=== PATIENT | male | born 1970 | race Caucasian/White ===

== ENCOUNTER → 2020-10-05 15:20 | Outpatient (BNVA) | payer BC, SELFPAY | PROVIDERS: Visit Provider Urology ==

== ENCOUNTER 2021-01-15 06:26 | Day surgery (SDC) | payer BC, SELFPAY ==
[2021-01-05 11:00] VITALS: BMI 27.1
--- NOTE | 2021-01-10 11:47 | HO.ANESPROP2 ---
HPI - Anesthesia Eval Consult details Narrative: 50yo M for Excision Lesion,CO2 laser of angiokeratoma of scrotum PMFSH Active Problems Active Problems: All Active Problems (Updated 01/05/21 @ 10:54 by Dora Jesus RN) Angiokeratoma of scrotum (Acute) Past Medical History Medical History (Updated 01/05/21 @ 10:54 by Dora Jesus RN) Asthma History of panic attacks Scrotal abscess Surgical History Surgical History (Updated 01/05/21 @ 10:54 by Dora Jesus RN) History of testicular surgery Hx of excision of mass Hx of wisdom tooth extraction Social History Social History Patient Tobacco Use Status: Never used Tobacco Meds Allergies Allergy/AdvReac Type Severity Reaction Status Date / Time bupivacaine [From MARCAINE] AdvReac Intermediate BP ISSUES, Verified 01/05/21 10:48 VOMITING lidocaine [From XYLOCAINE] AdvReac Intermediate BP ISSUES, Verified 01/05/21 10:48 VOMITING Home Medications Medication Instructions Recorded Confirmed Last Taken Type albuterol sulfate 90 mcg/actuation 1 puff PO Q4-6H PRN 10/05/20 01/05/21 Unknown History aerosol inhaler escitalopram oxalate 10 mg tablet 10 mg PO DAILY 10/05/20 01/05/21 01/15/21 History finasteride 5 mg tablet 1.25 mg PO DAILY 12/06/20 01/05/21 Unknown History Exam Exam Date and Time: January 10, 2021 1147 Height,Weight and Vital Signs: Height 5 ft 11 in Weight 88.451 kg Assessment and Plan Assessment Anesthesia Assessment: Chart Reviewed
[2021-01-15 06:52] VITALS: BP 136/89; PULSE 82; RESP 16; TEMP 36.7; O2SAT 97
[2021-01-15] MEDS: Lactated Ringers 1,000 ML 100 ML IVCONT (07:00)
[2021-01-15] MEDS: levoFLOXacin 500 MG TABLET PO (07:50)
--- NOTE | 2021-01-15 08:10 | MHC.SHP ---
Pre-Procedural Eval Section A Date of Service: 01/15/21 The patient is an INPATIENT: No Changes since office visit: No Cold of Flu in the past 2 weeks, No New Medical Problems, No Changes in Medication and No Patient answered all questions The History & Physical has been completed within 30 days and I have reviewed it.: No Section B Chief Complaint: neoplasm of scrotum Details of Present Illness: CO2 scrotal angiokeratoma Relevant Family History (Specify if Yes): No Relevant Social History: None Present Medications: see Short Stay Collaborative assessment Medical History: No relevant PMH History of Previous Operations: Relevant previous surgery/procedure and date(s) Allergies: Allergies Allergy/AdvReac Type Severity Reaction Status Date / Time bupivacaine [From MARCAINE] AdvReac Intermediate BP ISSUES, Verified 01/05/21 10:48 VOMITING lidocaine [From XYLOCAINE] AdvReac Intermediate BP ISSUES, Verified 01/05/21 10:48 VOMITING Review of Systems Sugical H&P ROS: Negative: Constitution, Cardiovascular, Respiratory, Neurological, Psychiatric, Hem-Onc, Allergic/Immunologic, Gastrointestinal, Genitourinary, Musculoskeletal, Integumentary, Endocrine and Eyes/Ears/Nose/Throat Exam Surgical H&P Exam: Normal: HEENT, Normal: Heart, Normal: Lungs, Normal: Extremities, Normal: Abdomen, Normal: Skin and Normal: Neurological Plan Diagnosis/Plan: Unchanged ( CO2 laser scrotal angiokeratoma) I have reviewed the history and physical and performed a pertinent physical examination on my patient. No changes have occurred unless specified.
[2021-01-15 09:30] VITALS: BP 137/85; PULSE 115; RESP 16; TEMP 36.4; O2SAT 99
[2021-01-15 09:35] VITALS: BP 127/72; PULSE 92; RESP 17; O2SAT 99
[2021-01-15 09:40] VITALS: BP 112/73; PULSE 93; RESP 17; O2SAT 97
[2021-01-15 09:45] VITALS: BP 132/85; PULSE 94; RESP 17; O2SAT 97
[2021-01-15 10:00] VITALS: BP 156/98; PULSE 96; RESP 17; TEMP 36.6; O2SAT 99
--- NOTE | 2021-06-07 15:34 | W.PM.OPN ---
Operative Note Operative Note Date of Service: 01/15/21 Narrative: PreOperative Diagnosis: Scrotal angiokeratoma multiple Post Operative Diagnosis: Scrotal angiokeratoma multiple Procedure: CO2 laser procedure of scrotal angiokeratoma Surgeon: Dr Ross Washington Anesthesia: Sedation Indications for procedure: Multiple angio keratoma on the scrotum that is causing bleeding when rubbed on underwear. Here for laser of angio keratoma lesions Procedure: After informed consent was verified the patient was brought to the operating room and placed in a supine position. Anesthesia was administered per protocol. Using a CO2 laser the angiokeratoma were lasered with pinpoint laser until cauterized. This was performed in multiple locations. There were approximately 40 different lesions each ranging in size from 1-2 mm. There were present bilaterally across the scrotum. There were also some prominent veins that responded to laser. At the completion the scrotal area was covered with antibiotic ointment. Dressing placed Pathology: Known Drains: None
== END 2021-01-15 10:59 | disposition home or self-care (01) ==
PROVIDERS: PCP Family Medicine; Visit Provider Urology
PROC: (CPT 17111; principal; 2021-01-15 08:20)
DX: D29.4 Benign neoplasm of scrotum (principal)
CPT/HCPCS: 17111; J1100; J2250; J2405; J3010

== ENCOUNTER → 2021-03-09 08:20 | Outpatient (BNVA) | payer BC, SELFPAY | PROVIDERS: PCP Family Medicine; Visit Provider Urology ==

== ENCOUNTER 2023-06-25 10:01 | Outpatient (AMB) | payer BC, SELFPAY ==
--- NOTE | 2023-06-25 10:09 | MHC.OFFVIS ---
Intake Visit Reasons: angiokeratoma Intake Note: Patient is Present for Follow Up Urology Medication:Finasteride Antibiotic Allergies:None Blood Thinners:None Allergies bupivacaine [From MARCAINE] Adverse Reaction (Intermediate, Verified 06/25/23 10:11) BP ISSUES, VOMITING lidocaine [From XYLOCAINE] Adverse Reaction (Intermediate, Verified 06/25/23 10:11) BP ISSUES, VOMITING HPI Comments Details: Joce is a pleasant male. He is seen for the following urologic conditions - scrotal angiokeratoma Last seen 2 years ago Had question regarding small nodule on shaft of penis PSA be consistent with potential Peyronie's plaque however has resolved Finasteride used for hair loss Otherwise stable. Follow-up p.r.n. Scrotal angiokeratoma Prior CO2 laser ablation x2 Significant improvement Still has number that have recurred and have caused blood to appear in his underwear [facility] Medical History History of panic attacks Asthma Scrotal abscess Surgical History Hx of wisdom tooth extraction History of testicular surgery Hx of excision of mass Social History Patient Tobacco Use Status: Never used Tobacco Review of Systems Const Denies chills and Denies fever(s) Card Reports no additional complaints and Denies syncope Resp Denies cough GI Denies abdominal pain and Denies heartburn Reports as per HPI and Denies change in libido Neuro Denies syncope Psych Denies change in libido Endo Denies change in libido Physical Exam Const General: cooperative, healthy appearing, comfortable and no acute distress Orientation/consciousness: patient oriented x3 HEENT Face and sinus: Yes normal facial exam Mouth: moist mucous membranes Neck Neck: Yes normal visual inspection, Yes full ROM and Yes trachea midline Chest Chest palpation & inspection: normal inspection of the chest Resp Effort & Inspection: normal respiratory effort, able to speak in complete sentences and no respiratory distress GI Inspection: Yes normal to inspection Back/Spine/Pelvis Cervical Spine: normal cervical lordosis Thoracic/Lumbar Spine: thoracic and lumbar spine normal to inspection Skin General skin exam: no rashes or lesions noted Neuro General: patient oriented x3, gait normal, tone normal and moves all extremities Extrem General: Yes normal to inspection and Yes capillary refill normal Assessment & Plan Assessment & Plan (1) Angiokeratoma of scrotum: Code(s): D29.4 - Benign neoplasm of scrotum Category: Medical Plan P.r.n. follow-up Patient Instructions: Imaging studies, laboratory and physical exam results were discussed and reviewed in detail. No major barriers to patient understanding were identified. An opportunity to ask questions regarding the treatment plan was provided. All questions were answered. The patient expressed understanding and agreement with the above treatment plan. The patient is aware they should contact our office by phone for worsening of their current condition or the appearance of new urologic symptoms. Compliance is encouraged with any medications and followup testing that is ordered. It is a privilege to participate in the urologic care of your patient. If you have any questions or concerns regarding treatment for the above conditions, or other urologic issues, please do not hesitate to contact me. The office telephone contact is [phone]. This note is constructed using voice recognition software. While every effort has been made to ensure accuracy poolroom table attendant errors may have been included. Yours sincerely, Dr Ross Washington MD, [facility] - Urology Providers of Expert, Compassionate Care for the Genitourinary System Coding Level of Care Code Est Pt Level 4 (40063) Diagnoses Angiokeratoma of scrotum D29.4
== END 2023-06-25 10:49 | disposition home or self-care (01) ==
PROVIDERS: PCP Family Medicine; Referring Provider Family Medicine; Visit Provider Urology
DX: D29.4 Benign neoplasm of scrotum (principal)
CPT/HCPCS: 99213

== ENCOUNTER → 2023-06-25 10:01 | Outpatient (BNVA) | payer BC, SELFPAY | PROVIDERS: PCP Family Medicine; Visit Provider Urology ==